=== PATIENT | male | born 1995 | race Caucasian/White ===

== ENCOUNTER 2018-07-14 05:47 | Observation (INO) ==
[2018-07-14] MEDS ORDERED: *HR* LORazepam 2 MG/ML VIAL IVP ONE (05:54)
--- NOTE | 2018-07-14 05:55 | Emergency Department Note ---
Disposition Clinical Impression: Epileptic seizure, Alcohol intoxication Disposition: Home, Self-Care Condition: Good Time of Disposition: 07:00 General Adult HPI - General Chief complaint: ED Seizure Stated complaint: Possible seizure Time Seen by Provider: 07/14/18 05:50 Source: other (friends) Mode of arrival: private vehicle Limitations: altered mental status Nursing Notes Reviewed: Yes Vital Signs Reviewed: Yes - History of Present Illness HPI Narrative: Patient reportedly had a shaking spells tired body was shaking for about 5 minutes and was unresponsive after that. She started yelling out his cousin's name at one point. 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 Source: patient, nursing notes reviewed Medical history: Reports: no medical history Psychiatric history: Reports: anxiety, depression - Social History Smoking Status: Current every day smoker Smokeless Tobacco Status: No Alcohol use: Reports: occasionally Drug use: Reports: none Physical Exam - General Limitations: altered mental status General appearance: obtunded - Head Head exam: atraumatic, normocephalic, normal inspection - Eye Eye exam: Present: normal appearance, PERRL, EOMI - ENT ENT exam: normal exam, normal oropharynx, mucous membranes moist - Neck Neck exam: Present: normal inspection, full ROM, trachea midline - Chest Chest inspection: Present: normal inspection, symmetric chest wall rise - Respiratory Respiratory exam: Present: normal lung sounds bilaterally - Cardiovascular Cardiovascular exam: Present: regular rate, normal rhythm, normal heart sounds - Abdominal Exam Abdominal exam: Present: soft, Non-Tender. Absent: tenderness, distention, guarding, rebound, rigidity - Extremities Exam Extremities exam: Present: normal inspection, full ROM. Absent: tenderness, pedal edema - Back Exam Back exam: Present: normal inspection, full ROM. Absent: tenderness - Neurological Exam Neurological exam: Present: other (otunded / post ictal) - Skin Skin exam: Present: warm, dry, intact, normal color Medical Decision Making - MDM Narrative Medical decision making narrative: I reviewed the patient's medication list Case is discussed with Dr. Grayson who accepts admission - Lab Data Lab results reviewed: Yes I reviewed the patient's lab results. - Radiology Data Radiology results reviewed: Yes I reviewed the patient's radiology results. - EKG Data EKG #1 EKG attestation: Yes I reviewed and interpreted this EKG. EKG results narrative: EKG shows a heart rate of 115 bpm. KS interval 196 ms QRS duration 98 ms QT interval 308 QTC 420 6R axis of 98 degrees no acute ischemic changes are appreciated. There are some lateral T-wave inversions noted.
[2018-07-14] MEDS ORDERED: 0.9 % Sodium Chloride 1,000 ML IVC SCH ×2 (06:00→08:10)
[2018-07-14 06:10] LABS: Basophils # 0.1 K/mcL (0.0-0.2); Basophils % 0.7 %; Eosinophils % 0.4 %; Hematocrit 40.1 % (37.5-50.1); Immature Granulocytes % 0.3 % (0-4); Lymphocytes # 2.5 K/mcL (0.6-4.6); Lymphocytes % 34.2 %; Mean Corpuscular HGB Conc 34.9 g/dL (31.6-35.5); Mean Corpuscular Hemoglobin 29.9 pg (28.0-33.3); Mean Corpuscular Volume 85.7 fL (83.0-100.0); Mean Platelet Volume 10.6 fL (9.4-12.4); Monocytes # 0.5 K/mcL (0.0-1.3); Monocytes % 7.4 %; Neutrophils # 4.1 K/mcL (1.6-8.9); Platelet Count 241 K/mcL (140-400); Red Blood Count 4.68 M/mcL (4.19-5.50); Red Cell Distribution Width 11.7 % (11.5-14.5); White Blood Count 7.3 K/mcL (4.3-11.1)
[2018-07-14 06:17] LABS: Bilirubin,Urine Negative (Negative); Blood,Urine Negative (Negative); Clarity,Urine Clear (Clear); Color,Urine Yellow (Yellow); Glucose,Urine (UA) Normal (Normal); Ketones,Urine Negative (Negative); Leukocyte Esterase,Urine Negative (Negative); Nitrite,Urine Negative (Negative); Protein,Urine Negative (Neg-Trace); Specific Gravity,Urine 1.015 (1.010-1.025); Urobilinogen,Urine Normal (Normal)
[2018-07-14 06:27] LABS: Alanine Aminotransferase 11 Units/L (7-52); Albumin 4.6 g/dL (3.5-5.7); Albumin/Globulin Ratio 1.4 (1.1-2.2); Alkaline Phosphatase 86 Units/L (34-104); Aspartate Amino Transferase 18 Units/L (13-39); BUN/Creatinine Ratio 10 (6-26); Bilirubin,Total 0.3 mg/dL (0.3-1.0); Blood Urea Nitrogen 9 mg/dL (6-20); Calcium 8.9 mg/dL (8.6-10.3); Carbon Dioxide 26 mEq/L (23-29); Chloride 106 mEq/L (98-107); Globulin 3.2 g/dL (2.4-3.5); Glucose 105 mg/dL (70-105); Osmolality,Calculated 291 (280-300); Potassium 3.7 mEq/L (3.5-5.1); Sodium 141 mEq/L (136-145); Total Protein 7.8 g/dL (6.4-8.9); eGFR For African Americans > 60 (> 60); eGFR For Non-African Americans > 60 (> 60)
[2018-07-14 06:29] LABS: Amphetamine Screen,Urine Negative ng/mL (Cutoff=1000); Barbiturate Screen,Urine Negative ng/mL (Cutoff=200); Benzodiazepines Screen,Urine Negative ng/mL (Cutoff=200); Cannabinoid Screen,Urine Negative ng/mL (Cutoff = 50); Cocaine Screen,Urine Negative ng/mL (Cutoff= 300); Opiate Screen,Urine Negative ng/mL (Cutoff=300); Phencyclidine Screen,Urine Negative ng/mL (Cutoff=25)
[2018-07-14] MEDS ORDERED: Naloxone 0.4 MG/ML INJ IVP PRN (08:10)
--- NOTE | 2018-07-14 09:37 | Electrocardiograph Report ---
[place] [id number] Test Date: 2018-07-14 Pat Name: Gerry Willoughby Department: EDP-16 Room: [facility] Gender: M Grinding Operator: : 1995 Requested By: Sivakumar Call Order Number: [id number] Reading MD: Madalyn Vasquez Measurements Intervals [place] Rate: 115 P: 105 IN: 196 QRS: 98 QRSD: 98 T: 126 QT: 308 QTc: 426 Interpretive Statements Right and left arm electrode reversal Sinus tachycardia RV conduction dleay Electronically Signed On 07-14-2018 9:35:57 EDT by Madalyn Vasquez
[2018-07-14 15:24] VITALS: BP 114/66
--- NOTE | 2018-07-14 18:24 | Internal Med History&Physical ---
Date of Encounter: 07/14/18 Time of Encounter: 17:30 Assessment and Plan (1) Alcohol intoxication Current visit: Yes Status: Acute He is now coherent and probably near his mental baseline. He does not have any signs or symptoms of alcohol withdrawal. Qualifiers: Complication of substance-induced condition: uncomplicated Qualified Code(s): F10.920 - Alcohol use, unspecified with intoxication, uncomplicated (2) Epileptic seizure Current visit: Yes Status: Acute Questionable diagnosis. His description of events does not seem clearly to reflect grand mal seizures. I am reluctant to give him a EGD without a definitive diagnosis. He lives with individuals who have been substance- abusers. I feel he needs neurologic evaluation soon as his PCP can arrange this. Qualifiers: Epilepsy type: unspecified Intractability: not intractable Status epilepticus: without status epilepticus Qualified Code(s): G40.909 - Epilepsy, unspecified, not intractable, without status epilepticus Internal Medicine - H&P: HPI Chief complaint: Intoxication, possible seizure Admitted From: Emergency Dept Plans for Post Hospital Care: Home History of present illness: Mr. Willoughby is a 22 year old male who came to emergency room by car after he experienced several episodes of unconsciousness at home. He was told by an observer he had "seizures" but patient denies loss of bowel or bladder control. He admits to drinking alcoholic drink starting at 10 PM last evening. He was evaluated in emergency room and was found to have blood alcohol level of 178 MG/DL. He was admitted to [facility] floor for ongoing care needs. He states his last drink was approximately 2-1/2 weeks ago. He reports illicit drug use in the past but states his most recent usage was THC approximately 4 months ago. He has never been seen by a neurologist. He had an initial visit with a new PCP in [place] 06/29/2018 who arranged an evaluation by a neurologist on 09/06/2018. Past Med Surg Social Fam HX - Past Medical History Medical history: no medical history Psychiatric history: anxiety, depression - Past Surgical History Surgical History: no surgical history Additional surgical history: 4 sutures in forehead 14 years ago - Social History Smoking Status: Current every day smoker Smokeless Tobacco Status: No (pt. uses vapor cigarettes) Alcohol use: occasionally Drug use: other - Family History Father History Unknown: Yes Living Status: Still Living Internal Medicine - H&P: Meds No Known Home Drugs 05/28/17 [History] Allergy/AdvReac Type Severity Reaction Status Date / Time No Known Allergies Allergy Verified 07/14/18 07:35 All Systems PM: A 10-system review of systems was performed and is negative for pertinent findings except as documented above in the HPI. Review of systems: Gen.: He states his weight has been stable for several months Cardiovascular: He denies hypertension heart failure angina DVT or pulmonary embolus Respiratory: He has smoked intermittently since age 12 and has been told he has asthma. GI: He denies disorders of his liver gallbladder or exocrine pancreas : He denies hematuria dysuria or kidney stones Neurologic: As per history of present illness Endocrine: He denies diabetes thyroid disease or hyperlipidemia Hematology/oncology: He denies blood disorders cancers or anemia Psychiatric: He has been told in the past he has anxiety and depression. He does not take medication at this time. [place] skeletal: He denies arthritis gout or other bone joint or muscle disorders. - Constitutional Vitals: Temp Pulse Resp BP Pulse Ox 98.8 F 84 15 114/66 96 07/14/18 15:21 07/14/18 15:21 07/14/18 15:21 07/14/18 15:21 07/14/18 15:21 Exam: Gen.: He is a well-developed well-nourished male resting comfortably in bed who appears in no acute distress HEENT: Head is atraumatic and normocephalic. Eyes: EOMI. There is no scleral icterus. Mouth: Mucosa is moist. Neck: Supple and nontender. There is no thyromegaly or adenopathy noted. Heart: Regular without murmurs gallops or ectopics Lungs: No wheezes or crackles are heard. Abdomen: Soft and nontender. No masses or guarding are noted. Extremities: There is no cyanosis edema or clubbing noted. Dorsalis pedis and posterior tibial pulses are 2/2 bilaterally. Neurologic: Mental status: He is talkative and a fair to good historian. He does not know some details of his past medical history well. Cranial nerves: Smile is symmetric. Forehead wrinkles bilaterally. Tongue protrudes midline. EOMI. Motor: There is no pronator drift. Cerebellar: Finger to nose is intact bilaterally. Skin: Warm and dry Internal Med - H&P Results - Labs CBC & Chem 7: 07/14/18 06:02 07/14/18 06:02 Labs: Short CBC 07/14/18 Range/Units 06:02 WBC 7.3 (4.3-11.1) K/mcL Hgb 14.0 (12.9-16.9) g/dL Hct 40.1 (37.5-50.1) % Plt Count 241 (140-400) K/mcL Neutrophils # 4.1 (1.6-8.9) K/mcL BMP 07/14/18 06:02 Sodium 141 Potassium 3.7 Chloride 106 Carbon Dioxide 26 BUN 9 Creatinine 0.91 Glucose 105 Calcium 8.9 Liver Function 07/14/18 Range/Units 06:02 Total Bilirubin 0.3 (0.3-1.0) mg/dL AST 18 (13-39) Units/L ALT 11 (7-52) Units/L Alkaline Phosphatase 86 (34-104) Units/L Albumin 4.6 (3.5-5.7) g/dL Urine 07/14/18 Range/Units 06:12 Urine Color Yellow (Yellow) Urine Clarity Clear (Clear) Urine pH 7.0 (5.0-8.0) pH Units Ur Specific [place] 1.015 (1.010-1.025) Urine Protein Negative (Neg-Trace) mg/dL Urine Glucose (UA) Normal (Normal) mg/dL - Impressions ITS Impressions Chest X-Ray 07/14/18 05:54 IMPRESSION: 1. No acute cardiopulmonary disease. D/ / Jaard Harper MD / Jarad Harper MD Interpreting Provider: Jarad Harper MD Head CT 07/14/18 05:54 IMPRESSION: No acute intracranial abnormality. Maxillary sinus disease. D/ / Sky Liz MD / Sky Liz MD Interpreting Provider: Sky Liz MD
--- NOTE | 2018-07-14 18:41 | Discharge Summary ---
Date of Encounter: 07/14/18 Time of Encounter: 17:30 - Discharge Diagnosis (1) Alcohol intoxication Priority: Primary Status: Resolved Qualifiers: Complication of substance-induced condition: uncomplicated Qualified Code(s): F10.920 - Alcohol use, unspecified with intoxication, uncomplicated (2) Epileptic seizure Priority: Secondary Status: Acute Qualifiers: Epilepsy type: unspecified Intractability: not intractable Status epilepticus: without status epilepticus Qualified Code(s): G40.909 - Epilepsy, unspecified, not intractable, without status epilepticus Hospital course: Mr. Willoughby is a 22 year old male who came to emergency room by car after he experienced several episodes of unconsciousness at home. He was told by an observer he had "seizures" but patient denies loss of bowel or bladder control. He admits to drinking alcoholic drink starting at 10 PM last evening. He was evaluated in emergency room and was found to have blood alcohol level of 178 MG/DL. He was admitted to [facility] floor for ongoing care needs. Initial orders were written by the emergency room physician. I saw him the late afternoon of July 14 and performed a history physical and discharge. He had no further loss of consciousness and no seizures. He did not have signs or symptoms of alcohol withdrawal when I saw him. He felt back to his baseline and wished to be discharged home. I encouraged him to discontinue all alcohol, tobacco products, and illicit drug use. I encouraged him to avoid high risk sexual behavior since he admitted to being mejias. He will follow with his [facility] PCP within 1 week. I recommend he have neurologic evaluation as soon as can be arranged. I felt prescription of AED at this time should be postponed pending neurologic evaluation. He reports p ersonal history of substance abuse as well as similar behavior by other people in the house. - Time Spent with Patient Total time spent providing and/or coordinating discharge services: - Discharge Medications Prescriptions: Continued No Known Home Drugs 1 each .ROUTE AD each Home Medications: No Known Home Drugs 05/28/17 [History] Allergies/Adverse Reactions: Allergy/AdvReac Type Severity Reaction Status Date / Time No Known Allergies Allergy Verified 07/14/18 07:35 Date of admission: 07/14/18 07:33 Primary care physician: PCP NONE - Constitutional Vitals: Temp Pulse Resp BP Pulse Ox 98.8 F 84 15 114/66 96 07/14/18 18:00 07/14/18 18:00 07/14/18 18:00 07/14/18 18:00 07/14/18 18:00 - Patient Status Disposition: Home, Self-Care Condition: Good - Discharge Instructions Follow Up With: NONE,PCP [Primary Care Provider] - - Diet and Activity Activity: resume usual activities as tolerated Diet: advance to your usual diet
== END 2018-07-14 19:40 | disposition home or self-care (01) ==
LOC: INPPIK 05:47 → EMEROOPIK 05:47 → INPPIK 07:50
PROVIDERS: ADMIT Internal Medicine; ATTEND Internal Medicine